=== PATIENT | male | born 1990 | race Caucasian/White ===

== ENCOUNTER 2016-10-26 17:50 | Emergency (ER) | payer OTHER ==
--- NOTE | 2016-10-26 18:44 | XRAY Preliminary Report ---
Exam: XR Ankle 3 View RT IMPRESSION: Equivocal hairline fracture lateral malleolus, 1.8 cm from the tip. Correlate clinically to determine significance. [facility] SITE ID: [id number]
--- NOTE | 2016-10-26 18:53 | XRAY Report ---
EXAM: RIGHT ANKLE RADIOGRAPHY EXAM DATE: 10/26/2016 06:16 PM. CLINICAL HISTORY: Pain after injury. COMPARISON: None. TECHNIQUE: 3 views. FINDINGS: Bones: Suggestion of a hairline transverse fracture lateral malleolus, 8 mm inferior to the talar dom e, seen only on one view; however no associated edema. Joints: Normal. No effusion. No subluxations. The ankle mortise is normally aligned. Soft Tissues: Normal. No soft tissue swelling. IMPRESSION: Equivocal hairline fracture lateral malleolus, 1.8 cm from the tip. Correlate clinically to determine significance. [facility] Referring Provider Line: [phone] SITE ID: [id number]
--- NOTE | 2016-10-26 19:29 | ED Physician Documentation ---
History of Present Illness - Stated complaint Stated Complaint: RT ANKLE INJ - Chief complaint Chief Complaint: Ext Problem - History obtained from History obtained from: Patient - Additonal information Additional information: Patient is a young healthy 26-year-old man who while playing volleyball came down after jumping up in the air landed on a another player's shoe. He sustained a twisting injury to the right foot. He complains of pain to the lateral right foot. He denies any pain or injury to the medial or lateral malleolus of the affected right leg. He denies any knee injury or proximal lower extremity injury. Pain is worse with movement and better with rest. He does have a history of multiple inversion injuries in the past but has never had any type of fracture. Review of Systems Constitutional: denies: Fever Musculoskeletal: reports: Extremity pain, Joint pain, Extremity swelling, Joint swelling, Pain with weight bearing. denies: Neck pain, Back pain Neurologic: denies: Generalized weakness PD PAST MEDICAL HISTORY - Past Surgical History Past Surgical History: No - Present Medications Home Medications: Ambulatory Orders Medication Instructions Recorded Confirmed No Known Home Medications [No 10/26/16 10/26/16 Known Home Medications] - Allergies Allergies/Adverse Reactions: Allergies Allergy/AdvReac Type Severity Reaction Status Date / Time No Known Drug Allergies Allergy Verified 10/26/16 18:00 - Social History Does the pt smoke?: No Smoking Status: Never smoker Does the pt drink ETOH?: No Does the pt have substance abuse?: No - Immunizations Immunizations are current?: Yes Results - Vitals Vitals: Vital Signs - 24 hr 10/26/16 17:58 Temperature 37.3 C Heart Rate 83 Respiratory 16 Rate Blood Pressure 130/72 O2 Saturation 97 Oxygen O2 Source Room air
--- NOTE | 2016-10-26 19:46 | XRAY Preliminary Report ---
Exam: XR Foot 3 View RT IMPRESSION: Normal foot radiography. [facility] SITE ID: [id number]
--- NOTE | 2016-10-26 19:49 | XRAY Report ---
EXAM: RIGHT FOOT RADIOGRAPHY EXAM DATE: 10/26/2016 07:22 PM. CLINICAL HISTORY: Tender over 5th metatarsal base-not tender lat mal. COMPARISON: None. TECHNIQUE: 3 views. FINDINGS: Bones: Normal. No fractures or bone lesions. Joints: Normal. No subluxations. Soft Tissues: Normal. No soft tissue swelling. IMPRESSION: Normal foot radiography. [facility] Referring Provider Line: [phone] SITE ID: [id number]
[2016-10-26 20:17] VITALS: BP 116/68
== END 2016-10-26 20:16 | disposition home or self-care (01) ==
LOC: ED 17:50
DX: S99.921A Unspecified injury of right foot, initial encounter (principal); W22.09XA Striking against other stationary object, initial encounter; X50.1XXA Overexertion from prolonged static or awkward postures, initial encounter; Y93.68 Activity, volleyball (beach) (court)
CPT/HCPCS: 29515; 99282; 99283